=== PATIENT | female | born 1980 | race Caucasian/White ===

== ENCOUNTER → 2016-09-08 | Outpatient (CLI) | payer OTHER ==
--- NOTE | 2016-09-08 16:12 | MR ---
MR thoracic spine HISTORY: Pain Correlation to plain film to March 2014 Multiplanar multisequence imaging through the thoracic spine. Thoracic vertebral bodies show preserved height and alignment. Multiple small hemangiomas present wit hin several thoracic vertebral bodies. Thoracic cord signal is remarkable for prominent central aqued uct. No significant foraminal encroachment or central stenosis. Loss of disc height and signal at the intervertebral levels at the midthoracic spine compatible with disc desiccation and degenerative dis c disease. T4-5 shows a small posterior central disc herniation. T5-6 shows a small central posterior disc herniation. T7-8 shows a central posterior disc herniation which contacts anterior thoracic cord. T9-T10 shows a small right posterior paracentral disc herniation. IMPRESSION: Multilevel disc herniations. No significant central canal stenosis. Probable prominent ce ntral canal within the thoracic cord at the lower level. Disc herniation is greatest at T7-8.
== END | disposition home or self-care (01) ==
LOC: RADMRIMAIN 13:24
PROVIDERS: ATTEND Family Medicine
DX: M51.24 Other intervertebral disc displacement, thoracic region (principal)
CPT/HCPCS: 72146

== ENCOUNTER → 2016-10-09 | Outpatient (CLI) | payer OTHER ==
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
== END ==
LOC: RADMRIMAIN 20:35
PROVIDERS: ATTEND Neurological Surgery
DX: M50.10 Cervical disc disorder with radiculopathy, unspecified cervical region (principal)
CPT/HCPCS: 72141

== ENCOUNTER → 2017-09-13 | Outpatient (CLI) | payer OTHER ==
--- NOTE | 2017-09-13 14:19 | XR ---
EXAMINATION TYPE: XR chest 2V DATE OF EXAM: 09/13/2017 COMPARISON: NONE HISTORY: Mid thoracic and chest pain. TECHNIQUE: Frontal and lateral views of the chest are obtained. FINDINGS: There is no focal air space opacity, pleural effusion, or pneumothorax seen. The cardiac silhouette size is within normal limits. The osseous structures are intact. Cholecystectomy clips a re noted within the right upper quadrant. IMPRESSION: No acute cardiopulmonary process.
== END | disposition home or self-care (01) ==
LOC: RADXRMAIN 13:39
PROVIDERS: ATTEND Family Medicine
DX: M54.6 Pain in thoracic spine (principal)
CPT/HCPCS: 71046

== ENCOUNTER → 2019-08-26 | Outpatient (CLI) | payer BC ==
--- NOTE | 2019-08-26 09:11 | MM ---
Reason for exam: screening (asymptomatic). Baseline mammogram. History: Family history of breast cancer in paternal grandmother at age 70. Took other hormone beginning at age 36. Physical Findings: Nurse did not find any significant physical abnormalities on exam. MG 3D Screening Mammo W/Cad Bilateral CC and MLO view(s) were taken. The breast tissue is heterogeneously dense. This may lower the sensitivity of mammography. No suspicious abnormality. These results were verbally communicated with the patient and result sheet given to the patient on 08/26/19. ASSESSMENT: Negative, BI-RAD 1 RECOMMENDATION: Routine screening mammogram of both breasts in 1 year.
== END | disposition home or self-care (01) ==
LOC: RADMAMWWP 06:48
PROVIDERS: ATTEND Obstetrics & Gynecology
DX: Z12.31 Encounter for screening mammogram for malignant neoplasm of breast (principal)
CPT/HCPCS: 77063; 77067

== ENCOUNTER 2019-09-20 19:01 | Emergency (ER) | payer BC ==
[2019-09-20 19:17] VITALS: TEMP 97.9
[2019-09-20] MEDS ORDERED: SODIUM CHLORIDE 0.9% 500 ML 500 ML IV STA (19:29)
--- NOTE | 2019-09-20 19:41 | ED ---
General Adult HPI - General Chief complaint: Arrhythmia/Palpitations Stated complaint: High BP/heart concerns Time Seen by Provider: 09/20/19 19:20 Source: patient, RN notes reviewed, old records reviewed Mode of arrival: ambulatory Limitations: no limitations - History of Present Illness Initial comments: 39-year-old female patient presents to ED for evaluation of lightheaded sensation. Patient reports that approximately 1.5 hours ago patient began to feel dizzy, felt her ear as needed to pop. Reports that she also expresses some heart palpitations and heart racing. Reports that she still is somewhat expressing the symptoms have significant improved. Denies any chest pain or shortness breath. Denies any headache or change in vision. Denies a chance of being . Denies any other complaints. Systemic: Pt denies fatigue, fever/chills, rash. Pt denies weakness, night sweats, weight loss. Neuro: Pt denies headache, visual disturbances, syncope or pre-syncope. HEENT: Pt denies ocular discharge or irritation, otalgia, rhinorrhea, pha ryngitis or notable lymphadenopathy. Cardiopulmonary: Pt denies chest pain, SOB, heart palpitations, dyspnea on exertion. Abdominal/GI: Pt denies abdominal pain, n/v/d. : Pt denies dysuria, burning w/ urination, frequency/urgency. Denies new onset urinary or bowel incontinence. MSK: Pt denies myalgia, loss of strength or function in extremities. Neuro: Pt denies new onset weakness, paresthesias. - Related Data Home Medications Medication Instructions Recorded Confirmed Desvenlafaxine Succinate [Pristiq 100 mg PO DAILY 04/08/15 04/08/15 ER] Dextroamphetamine/Amphetamine 20 mg PO DAILY 04/08/15 04/08/15 [Adderall] Propranolol HCl [Inderal] 60 mg PO DAILY 04/08/15 04/08/15 lamoTRIgine [LaMICtal] 200 mg PO DAILY 04/08/15 04/08/15 Previous Rx's Medication Instructions Recorded Amoxicillin/Potassium Clav 1 each PO Q12HR #14 tab 04/08/15 [Augmentin 875-125 Tablet] Allergies Allergy/AdvReac Type Severity Reaction Status Date / Time No Known Allergies Allergy Verified 09/20/19 19:17 Review of Systems ROS Statement: Those systems with pertinent positive or pertinent negative responses have been documented in the HPI. ROS Other: All systems not noted in ROS Statement are negative. Past Medical History Additional Past Medical History / Comment(s): back pain History of Any Multi-Drug Resistant Organisms: None Reported Past Surgical History: Cholecystectomy, Tonsillectomy Additional Past Surgical History / Comment(s): jaw surgery x2 Past Psychological History: No Psychological Hx Reported Smoking Status: Never smoker Past Alcohol Use History: None Reported Past Drug Use History: None Reported General Exam - General Exam Comments Initial Comments: Constitutional: NAD, AOX3, Pt has pleasant affect. HEENT: NC/AT, trachea midline, neck supple, no lymphadenopathy. Posterior pharynx non erythematous, without exudates. External ears appear normal, without discharge. Mucous membranes moist. Eyes PERRLA, EOM intact. There is no scleral icterus. No pallor noted. Cardiopulmonary: RRR, no murmurs, rubs or gallops, no JVD noted. Lungs CTAB in anterior and posterior villegas. No peripheral edema. Abdominal exam: Abdomen soft and non-distended. Abdomen non-tender to palpation in all 4 quadrants. Bowel sounds active in LLQ. No hepatosplenomegaly. No ecchymosis Neuro: CN II-XII intact. No nuchal rigidity. No raccon eyes, no leong sign, no hemotympanum. No cervical spinal tenderness. Repeat neurologic exam within normal limits. NIH is 0. MSK: No posterior calf tenderness bilaterally, homans sign negative bilaterally. Posterior tibialis and radial pulse +2 bilaterally. Sensation intact in upper and lower extremities. Full active ROM in upper and lower extremities, 5/5 stregnth. Limitations: no limitations Course Vital Signs 09/20/19 09/20/19 19:14 19:59 Temperature 97.9 F Pulse Rate 92 Pulse Rate [ 92 Help Aid ] Respiratory 16 Rate Blood Pressure 146/100 O2 Sat by Pulse 100 Oximetry Medical Decision Making - Medical Decision Making 39-year-old female patient presents to ED for evaluation of lightheaded sen sation. Patient reports that approximately 1.5 hours ago patient began to feel dizzy, felt her ear as needed to pop. Reports that she also expresses some heart palpitations and heart racing. Reports that she still is somewhat expressing the symptoms have significant improved. Denies any chest pain or shortness breath. Denies any headache or change in vision. Denies a chance of being . Denies any other complaints. Patient relatively stable, afebrile. Physical examhe pathology. Neurologic exam is benign, NIH 0. Laboratory investigations are unremarkable. CT brain was unremarkable. EKG nonischemic. Further history taking patient reports that she has been very stressed at work has been working every day, believes this may be anxiety related. Patient was administered an anxiolytic, patient reports that she felt significant improvement. Patient requests discharge. Patient will follow up with primary care provider on Saturday and will return to ER if condition worsens. Case discussed with Dr. Quiroga. - Lab Data Result diagrams: 09/20/19 19:40 09/20/19 19:40 Lab Results 09/20/19 09/20/19 09/20/19 Range/Units 19:29 19:29 19:40 WBC (3.8-10.6) k/uL RBC (3.80-5.40) m/uL Hgb (11.4-16.0) gm/dL Hct (34.0-46.0) % MCV (80.0-100.0) fL MCH (25.0-35.0) pg MCHC (31.0-37.0) g/dL RDW (11.5-15.5) % Plt Count (150-450) k/uL Neutrophils % % Lymphocytes % % Monocytes % % Eosinophils % % Basophils % % Neutrophils # (1.3-7.7) k/uL Lymphocytes # (1.0-4.8) k/uL Monocytes # (0-1.0) k/uL Eosinophils # (0-0.7) k/uL Basophils # (0-0.2) k/uL Sodium 136 L (137-145) mmol/L Potassium 3.8 (3.5-5.1) mmol/L Chloride 98 (98-107) mmol/L Carbon Dioxide 27 (22-30) mmol/L Anion Gap 11 mmol/L BUN 14 (7-17) mg/dL Creatinine 0.81 (0.52-1.04) mg/dL Est GFR (CKD-EPI)AfAm >90 (>60 ml/min/1.73 sqM) Est GFR (CKD-EPI)NonAf >90 (>60 ml/min/1.73 sqM) Glucose 96 (74-99) mg/dL Calcium 9.2 (8.4-10.2) mg/dL Magnesium 1.7 (1.6-2.3) mg/dL Total Bilirubin 0.2 (0.2-1.3) mg/dL AST 25 (14-36) U/L ALT 22 (4-34) U/L Alkaline Phosphatase 78 (38-126) U/L Troponin I (0.000-0.034) ng/mL Total Protein 7.3 (6.3-8.2) g/dL Albumin 4.7 (3.5-5.0) g/dL TSH 1.250 (0.465-4.680) mIU/L Urine Color Colorless Urine Appearance Clear (Clear) Urine pH 5.5 (5.0-8.0) Ur Specific [place] 1.003 (1.001-1.035) Urine Protein Negative (Negative) Urine Glucose (UA) Negative (Negative) Urine Ketones Trace H (Negative) Urine Blood Trace H (Negative) Urine Nitrite Negative (Negative) Urine Bilirubin Negative (Negative) Urine Urobilinogen <2.0 (<2.0) mg/dL Ur Leukocyte Esterase Negative (Negative) Urine RBC 1 (0-5) /hpf Urine WBC <1 (0-5) /hpf Urine HCG, Qual Not Detected (Not Detectd) Urine Opiates Screen Not Detected (NotDetected) Ur Oxycodone Screen Not Detected (NotDetected) Urine Methadone Screen Not Detected (NotDetected) Ur Propoxyphene Screen Not Detected (NotDetected) Ur Barbiturates Screen Not Detected (NotDetected) U Tricyclic Antidepress Not Detected (NotDetected) Ur Phencyclidine Scrn Not Detected (NotDetected) Ur Amphetamines Screen Not Detected (NotDetected) U Methamphetamines Scrn Not Detected (NotDetected) U Benzodiazepines Scrn Not Detected (NotDetected) Urine Cocaine Screen Not Detected (NotDetected) U Marijuana (THC) Screen Not Detected (NotDetected) 09/20/19 09/20/19 Range/Units 19:40 19:40 WBC 7.3 (3.8-10.6) k/uL RBC 4.85 (3.80-5.40) m/uL Hgb 14.4 (11.4-16.0) gm/dL Hct 42.7 (34.0-46.0) % MCV 88.0 (80.0-100.0) fL MCH 29.6 (25.0-35.0) pg MCHC 33.6 (31.0-37.0) g/dL RDW 12.0 (11.5-15.5) % Plt Count 264 (150-450) k/uL Neutrophils % 71 % Lymphocytes % 20 % Monocytes % 4 % Eosinophils % 2 % Basophils % 0 % Neutrophils # 5.2 (1.3-7.7) k/uL Lymphocytes # 1.4 (1.0-4.8) k/uL Monocytes # 0.3 (0-1.0) k/uL Eosinophils # 0.2 (0-0.7) k/uL Basophils # 0.0 (0-0.2) k/uL Sodium (137-145) mmol/L Potassium (3.5-5.1) mmol/L Chloride (98-107) mmol/L Carbon Dioxide (22-30) mmol/L Anion Gap mmol/L BUN (7-17) mg/dL Creatinine (0.52-1.04) mg/dL Est GFR (CKD-EPI)AfAm (>60 ml/min/1.73 sqM) Est GFR (CKD-EPI)NonAf (>60 ml/min/1.73 sqM) Glucose (74-99) mg/dL Calcium (8.4-10.2) mg/dL Magnesium (1.6-2.3) mg/dL Total Bilirubin (0.2-1.3) mg/dL AST (14-36) U/L ALT (4-34) U/L Alkaline Phosphatase (38-126) U/L Troponin I <0.012 (0.000-0.034) ng/mL Total Protein (6.3-8.2) g/dL Albumin (3.5-5.0) g/dL TSH (0.465-4.680) mIU/L Urine Color Urine Appearance (Clear) Urine pH (5.0-8.0) Ur Specific [place] (1.001-1.035) Urine Protein (Negative) Urine Glucose (UA) (Negative) Urine Ketones (Negative) Urine Blood (Negative) Urine Nitrite (Negative) Urine Bilirubin (Negative) Urine Urobilinogen (<2.0) mg/dL Ur Leukocyte Esterase (Negative) Urine RBC (0-5) /hpf Urine WBC (0-5) /hpf Urine HCG, Qual (Not Detectd) Urine Opiates Screen (NotDetected) Ur Oxycodone Screen (NotDetected) Urine Methadone Screen (NotDetected) Ur Propoxyphene Screen (NotDetected) Ur Barbiturates Screen (NotDetected) U Tricyclic Antidepress (NotDetected) Ur Phencyclidine Scrn (NotDetected) Ur Amphetamines Screen (NotDetected) U Methamphetamines Scrn (NotDetected) U Benzodiazepines Scrn (NotDetected) Urine Cocaine Screen (NotDetected) U Marijuana (THC) Screen (NotDetected) Disposition Clinical Impression: Heart palpitations, Anxiety, Lightheadedness Disposition: HOME SELF-CARE Condition: Stable Instructions (If sedation given, give patient instructions): Heart Palpitations (ED) Additional Instructions: Follow-up with primary care provider tomorrow. Continue to drink lots of water. Return to ER if condition worsens in any way. Is patient prescribed a controlled substance at d/c from ED?: No Referrals: Param Zelaya DO [Primary Care Provider] - 1-2 days
[2019-09-20 19:58] LABS: Basophils % (A) 0 %; Eosinophils # (A) 0.2 k/uL (0-0.7); Eosinophils % (A) 2 %; HCT 42.7 % (34.0-46.0); HGB 14.4 gm/dL (11.4-16.0); Lymphocytes # (A) 1.4 k/uL (1.0-4.8); Lymphocytes % (A) 20 %; MCH 29.6 pg (25.0-35.0); MCHC 33.6 g/dL (31.0-37.0); Mean Platelet Volume 7.3; Monocytes # (A) 0.3 k/uL (0-1.0); Monocytes % (A) 4 %; Neutrophils # (A) 5.2 k/uL (1.3-7.7); Neutrophils % (A) 71 %; Platelet Count 264 k/uL (150-450); RBC 4.85 m/uL (3.80-5.40); WBC 7.3 k/uL (3.8-10.6)
[2019-09-20 20:09] LABS: ALT 22 U/L (4-34); AST 25 U/L (14-36); African American GFR (CKD) >90 (>60 ml/min/1.73 sqM); Albumin 4.7 g/dL (3.5-5.0); Alkaline Phosphatase 78 U/L (38-126); Anion Gap 11 mmol/L; Blood Urea Nitrogen 14 mg/dL (7-17); Calcium 9.2 mg/dL (8.4-10.2); Carbon Dioxide 27 mmol/L (22-30); Chloride 98 mmol/L (98-107); Glucose 96 mg/dL (74-99); Magnesium 1.7 mg/dL (1.6-2.3); Non-African American GFR(CKD) >90 (>60 ml/min/1.73 sqM); Potassium 3.8 mmol/L (3.5-5.1); Sodium 136 mmol/L (137-145); Total Bilirubin 0.2 mg/dL (0.2-1.3); Total Protein 7.3 g/dL (6.3-8.2)
[2019-09-20 20:28] LABS: Appearance,Urine Clear (Clear); Bilirubin,Urine Negative (Negative); Blood,Urine Trace (Negative); Color,Urine Colorless; Glucose,Urine (UA) Negative (Negative); Ketones,Urine Trace (Negative); Leukocyte Esterase,Urine Negative (Negative); Nitrite,Urine Negative (Negative); PH, Urine 5.5 (5.0-8.0); Protein,Urine Negative (Negative); RBC,Urine 1 /hpf (0-5); Specific Gravity,Urine 1.003 (1.001-1.035); Urobilinogen,Urine <2.0 mg/dL (<2.0); WBC,Urine <1 /hpf (0-5)
[2019-09-20 20:37] LABS: Amphetamine Screen,Urine Not Detected (NotDetected); Barbiturate Screen,Urine Not Detected (NotDetected); Benzodiazepines Screen,Urine Not Detected (NotDetected); Cocaine Screen,Urine Not Detected (NotDetected); Methadone Screen, Urine Not Detected (NotDetected); Opiate Screen,Urine Not Detected (NotDetected); Oxycodone Screen, Urine Not Detected (NotDetected); Phencyclidine Screen,Urine Not Detected (NotDetected); Tricyclic Antidepressant,Urine Not Detected (NotDetected); Urn Cannabinoid Scrn Not Detected (NotDetected)
[2019-09-20] MEDS ORDERED: LORazepam 1 MG TAB PO STA (20:44)
--- NOTE | 2019-09-20 21:04 | CT ---
EXAMINATION TYPE: CT brain wo con DATE OF EXAM: 09/20/2019 COMPARISON: None. HISTORY: dizziness CT DLP: 1098.4 mGycm. Automated Exposure Control for Dose Reduction was Utilized. TECHNIQUE: CT scan of the head is performed without contrast. FINDINGS: There is no acute intracranial hemorrhage, mass effect, or midline shift identified. The ventricles and sulci are within normal limits in size. Butt-white matter differentiation is maintain ed. The globes are intact and the visualized sinuses are clear. The calvarium is intact. No suspiciou s fluid signal bilateral mastoid air cells. IMPRESSION: Unremarkable study.
[2019-09-20 21:36] VITALS: BP 136/93; PULSE 104; RESP 18
== END 2019-09-20 21:36 | disposition home or self-care (01) ==
LOC: EC 19:01
DX: F41.9 Anxiety disorder, unspecified (principal); R42 Dizziness and giddiness; R00.2 Palpitations; Z79.899 Other long term (current) drug therapy
CPT/HCPCS: 36415; 70450; 80053; 80306; 81001; 81025; 83735; 84443; 84484; 85025; 93005; 96360; 99285

== ENCOUNTER → 2020-04-18 | Outpatient (CLI) | payer BC ==
--- NOTE | 2020-04-18 16:04 | XR ---
EXAMINATION TYPE: XR cervical spine comp DATE OF EXAM: 04/18/2020 COMPARISON: None HISTORY: Pain TECHNIQUE: Five-view cervical spine FINDINGS: The prevertebral space is normal. Disc heights are preserved. Vertebral body heights are pr eserved. Alignment is normal. Foramen are patent. Odontoid is limited with overlying occiput and maxilla despite multiple attempts. IMPRESSION: 1. Visualized cervical spine is unremarkable.
== END | disposition home or self-care (01) ==
LOC: RADXRMAIN 07:03
PROVIDERS: ATTEND Family Medicine
DX: M54.2 Cervicalgia (principal)
CPT/HCPCS: 72050

== ENCOUNTER → 2020-10-18 | Outpatient (CLI) | payer BC ==
--- NOTE | 2020-10-20 13:50 | MM ---
Reason for exam: screening (asymptomatic). Last mammogram was performed 1 year and 2 months ago. History: Family history of breast cancer in paternal grandmother at age 70. Taking progesterone beginning at age 38. Took other hormone beginning at age 36. Physical Findings: A clinical breast exam by your physician is recommended on an annual basis and results should be correlated with mammographic findings. MG 3D Screening Mammo W/Cad Bilateral CC and MLO view(s) were taken. Prior study comparison: August 26, 2019, bilateral MG 3d screening mammo w/cad. There are scattered fibroglandular densities. No significant changes when compared with prior studies. ASSESSMENT: Benign, BI-RAD 2 RECOMMENDATION: Routine screening mammogram of both breasts in 1 year.
== END | disposition home or self-care (01) ==
LOC: RADMAMWWP 16:36
PROVIDERS: ATTEND Obstetrics & Gynecology
DX: Z12.31 Encounter for screening mammogram for malignant neoplasm of breast (principal); Z80.3 Family history of malignant neoplasm of breast
CPT/HCPCS: 77063; 77067

== ENCOUNTER → 2021-11-30 | Outpatient (CLI) | payer OTHER ==
--- NOTE | 2021-12-01 11:46 | MM ---
Reason for exam: screening (asymptomatic). Last mammogram was performed 1 year and 1 month ago. History: Family history of breast cancer in paternal grandmother at age 70. Taking progesterone beginning at age 38. Took other hormone beginning at age 36. Physical Findings: A clinical breast exam by your physician is recommended on an annual basis and results should be correlated with mammographic findings. MG 3D Screening Mammo W/Cad Bilateral CC and MLO view(s) were taken. Prior study comparison: October 18, 2020, bilateral MG 3d screening mammo w/cad. August 26, 2019, bilateral MG 3d screening mammo w/cad. There are scattered fibroglandular densities. There is chronic nodularity in the right breast. No significant changes when compared with prior studies. ASSESSMENT: Negative, BI-RAD 1 RECOMMENDATION: Routine screening mammogram of both breasts in 1 year.
== END | disposition home or self-care (01) ==
LOC: RADMAMWWP 06:56
PROVIDERS: ATTEND Obstetrics & Gynecology
DX: Z12.31 Encounter for screening mammogram for malignant neoplasm of breast (principal)
CPT/HCPCS: 77063; 77067

== ENCOUNTER 2022-02-28 07:31 | Day surgery (SDC) | payer OTHER ==
[2022-02-27 12:02] VITALS: BMI 27.3
--- NOTE | 2022-02-28 06:22 | P.GSHP ---
History of Present Illness H&P Date: 02/28/22 CHIEF COMPLAINT: GERD and change in bowel habits HISTORY OF PRESENT ILLNESS: The patient is a 41-year-old female who presents with gastroesophageal reflux disease and change in bowel habits. Upper and lower endoscopy were offered for further evaluation and management. PAST MEDICAL HISTORY: Please see list. PAST SURGICAL HISTORY: Please see list. MEDICATIONS: Please see list. ALLERGIES: Please see list. SOCIAL HISTORY: No illicit drug use FAMILY HISTORY: No reports of Crohn disease or ulcerative colitis. REVIEW OF ORGAN SYSTEMS: CONSTITUTIONAL: No reports of fevers or chills. GI: Denies any blood in stools or constipation. PHYSICAL EXAM: VITAL SIGNS: Stable GENERAL: Well-developed pleasant in no acute distress. HEENT: No scleral icterus. Extraocular movements grossly intact. Moist buccal mucosa. NECK: Supple without lymphadenopathy. CHEST: Unlabored respirations. Equal bilateral excursions. CARDIOVASCULAR: Regular rate and rhythm. Distal 2+ pulses. ABDOMEN: Soft, nondistended. MUSCULOSKELETAL: No clubbing, cyanosis, or edema. ASSESSMENT: 1. Gastroesophageal reflux disease 2. Change in bowel habits PLAN: 1. Recommend proceeding with an upper and lower endoscopy Past Medical History Past Medical History: GERD/Reflux Additional Past Medical History / Comment(s): back pain History of Any Multi-Drug Resistant Organisms: None Reported Past Surgical History: Cholecystectomy, Tonsillectomy Additional Past Surgical History / Comment(s): jaw surgery x2 Past Anesthesia/Blood Transfusion Reactions: No Reported Reaction Additional Past Anesthesia/Blood Transfusion Reaction / Comment(s): TMJ Smoking Status: Never smoker - Past Family History Mother Family Medical History: Cancer Additional Family Medical History / Comment(s): lung- in November 2021 Medications and Allergies Home Medications Medication Instructions Recorded Confirmed Type Dextroamphetamine/Amphetamine 30 mg PO BID 04/08/15 02/27/22 History [Adderall] Propranolol HCl [Inderal] 20 mg PO BID 04/08/15 02/27/22 History ALPRAZolam [Xanax] 1 mg PO BID PRN 02/27/22 02/27/22 History Atorvastatin [Lipitor] 20 mg PO HS 02/27/22 02/27/22 History Cannabidiol (Cbd) [Epidiolex] 1 dose TOPICAL HS 02/27/22 02/27/22 History Famotidine [Pepcid] 40 mg PO HS 02/27/22 02/27/22 History Minocycline [Minocin] 50 mg PO DAILY 02/27/22 02/27/22 History buPROPion XL [Wellbutrin XL] 450 mg PO QAM 02/27/22 02/27/22 History busPIRone HCl [Buspar] 15 mg PO TID 02/27/22 02/27/22 History metroNIDAZOLE 0.75% CREAM 1 applic TOPICAL DAILY 02/27/22 02/27/22 History [Metrocream 0.75%] Allergies Allergy/AdvReac Type Severity Reaction Status Date / Time No Known Allergies Allergy Verified 02/27/22 11:48
[~2022-02-28 07:31] MED LIST: LACTATED RINGERS 1,000 ML IV SCH
[2022-02-28 08:13] VITALS: TEMP 96.9
[2022-02-28] MEDS ORDERED: LIDOCAINE 2% INJ 20 MG/ML (2 ML VIAL) ONE (09:19)
[2022-02-28] MEDS ORDERED: PROPOFOL 10 MG/ML 20 ML VIAL IV ONE (09:19)
--- NOTE | 2022-02-28 09:43 | P.PCN ---
Date of Procedure: 02/28/22 Description of Procedure: PREOPERATIVE DIAGNOSIS: Gastroesophageal reflux disease. POSTOPERATIVE DIAGNOSIS: Gastroesophageal reflux disease. Acute gastric ulcers with recent bleeding Diaphragmatic hiatal hernia OPERATION: Esophagogastroduodenoscopy with biopsies along antrum, duodenum SURGEON: Amina Goodwin MD ANESTHESIA: MAC. INDICATIONS: The patient is a 41-year-old female who presents with reflux disease. Benefits and risks of the procedure were described. Informed consent was obtained. DESCRIPTION: The patient was brought into the endoscopy suite and laid in the left lateral decubitus position. An Olympus gastroscope was passed along the posterior oropharynx down to the distal esophagus where the squamocolumnar junction was encountered at 40 cm from the incisors. The stomach was entered and no bile reflux was found. Additional findings are listed below. Biopsies with cold forceps were obtained of the antrum. The first through third portion of the duodenum was examined. Retroflexion of the scope confirmed Hill grade 4 lower esophageal valve. The squamocolumnar junction demonstrated LA grade B erosive esophagitis. The stomach was desufflated. The patient tolerated the procedure well. FINDINGS: Squamocolumnar junction 30 cm from the incisors. Diaphragmatic hiatus at 32 cm. Hiatal hernia, 2 cm, sliding type Hill grade 4 lower esophageal valve. Acute gastric ulcers 3 to 4 mm 3 with bleeding, proximal angularis incisura LA grade B erosive esophagitis. Cold forceps biopsies obtained of duodenum Chronic gastritis with recent bleed RECOMMENDATIONS: Repeat upper endoscopy 6 weeks, April 2022.
--- NOTE | 2022-02-28 10:07 | P.PCN ---
Date of Procedure: 02/28/22 Description of Procedure: PREOPERATIVE DIAGNOSIS: Change in bowel habits Colitis POSTOPERATIVE DIAGNOSIS: Sigmoid diverticulosis Colitis OPERATION: Colonoscopy to the ileocecal valve and appendiceal orifice, cecum Colonoscopy with cold forceps biopsy for microscopic colitis SURGEON: Amina Goodwin MD. ANESTHESIA: MAC. INDICATIONS: The patient is an 41-year-old female who presents with change in bowel habits and colitis. Benefits and risks were described and informed consent was obtained. DESCRIPTION OF PROCEDURE: The patient had undergone Sutab prep. The patient had been brought into the operating room and laid in the left lateral decubitus position. After adequate intravenous sedation, the rectum was examined with 2% lidocaine jelly. External hemorrhoids were encountered. The rectal tone was within normal limits. No lesions were palpated in the rectal vault. An Olympus colonoscope was advanced until the cecum, ileocecal valve and appendiceal orifice were clearly viewed. The prep was good. Sigmoid diverticulosis was encountered. Random biopsies were obtained for colitis. Retroflexion of the scope demonstrated grade 2 internal hemorrhoids without active bleeding or inflammation. The colon was desufflated. The patient had tolerated the procedure well. Withdrawal time was over 6 minutes. FINDINGS: Aronchick preparation quality scale 2 (1-5) Internal hemorrhoids, grade 2 External hemorrhoids, grade 2. No arteriovenous malformations. Sigmoid diverticulosis Random biopsies obtained for colitis, microscopic RECOMMENDATIONS: Reviewed colonoscopy in 2 years, 2023 Plan - Discharge Summary Discharge Rx Participant: No New Discharge Prescriptions: New Sucralfate [Carafate] 1 gm PO BID #30 tablet Pantoprazole [Protonix] 40 mg PO DAILY #14 tab Continue Propranolol HCl [Inderal] 20 mg PO BID Dextroamphetamine/Amphetamine [Adderall] 30 mg PO BID ALPRAZolam [Xanax] 1 mg PO BID PRN PRN Reason: Anxiety Minocycline [Minocin] 50 mg PO DAILY metroNIDAZOLE 0.75% CREAM [Metrocream 0.75%] 1 applic TOPICAL DAILY Atorvastatin [Lipitor] 20 mg PO HS buPROPion XL [Wellbutrin XL] 450 mg PO QAM busPIRone HCl [Buspar] 15 mg PO TID Cannabidiol (Cbd) [Epidiolex] 1 dose TOPICAL HS Discontinued Famotidine [Pepcid] 40 mg PO HS Discharge Medication List Dextroamphetamine/Amphetamine [Adderall] 30 mg PO BID 04/08/15 [History] Propranolol HCl [Inderal] 20 mg PO BID 04/08/15 [History] ALPRAZolam [Xanax] 1 mg PO BID PRN 02/27/22 [History] Atorvastatin [Lipitor] 20 mg PO HS 02/27/22 [History] Cannabidiol (Cbd) [Epidiolex] 1 dose TOPICAL HS 02/27/22 [History] Minocycline [Minocin] 50 mg PO DAILY 02/27/22 [History] buPROPion XL [Wellbutrin XL] 450 mg PO QAM 02/27/22 [History] busPIRone HCl [Buspar] 15 mg PO TID 02/27/22 [History] metroNIDAZOLE 0.75% CREAM [Metrocream 0.75%] 1 applic TOPICAL DAILY 02/27/22 [History] Pantoprazole [Protonix] 40 mg PO DAILY #14 tab 02/28/22 [Rx] Sucralfate [Carafate] 1 gm PO BID #30 tablet 02/28/22 [Rx] Follow up Appointment(s)/Referral(s): Amina Goodwin MD [STAFF PHYSICIAN] - 03/20/22 Patient Instructions/Handouts: Diet for Stomach Ulcers and Gastritis (ED), Diverticulosis Diet (GEN), Diverticulosis (DC) Activity/Diet/Wound Care/Special Instructions: Repeat colonoscopy in 2 years, 2023 Discharge Disposition: HOME SELF-CARE
[2022-02-28 10:35] VITALS: BP 121/85; PULSE 89; RESP 15
== END 2022-02-28 11:10 | disposition home or self-care (01) ==
LOC: ORWHC2ENDO 07:31
PROVIDERS: ATTEND Surgery Plastic and Reconstructive Surgery
DX: K21.00 Gastro-esophageal reflux disease with esophagitis, without bleeding (principal); K29.51 Unspecified chronic gastritis with bleeding; K25.0 Acute gastric ulcer with hemorrhage; K44.9 Diaphragmatic hernia without obstruction or gangrene; K52.9 Noninfective gastroenteritis and colitis, unspecified; K57.30 Diverticulosis of large intestine without perforation or abscess without bleeding; K64.1 Second degree hemorrhoids; E78.5 Hyperlipidemia, unspecified; F41.9 Anxiety disorder, unspecified; Z79.899 Other long term (current) drug therapy; Z80.1 Family history of malignant neoplasm of trachea, bronchus and lung
CPT/HCPCS: 81025; 88305; 45380; 43239; J2704; J2001

== ENCOUNTER → 2023-01-10 | Outpatient (CLI) | payer BC, OTHER ==
--- NOTE | 2023-01-10 09:23 | MM ---
Reason for Exam: Screening (asymptomatic). Last mammogram was performed 1 year(s) and 1 month(s) ago. Patient History: Menarche at age 11. Patient has no children. Progesterone for 2 years from age 38 until age 40. Paternal grandmother had breast cancer, age 70. Risk Values: Yesenia 5 year model risk: 0.9%. NCI Lifetime model risk: 10.7%. Prior Study Comparison: 08/26/2019 Bilateral Screening Mammogram, [facility]. 10/18/2020 Bilateral Screening Mammogram, [facility]. 11/30/2021 Bilateral Screening Mammogram, [facility]. Tissue Density: The breast tissue is heterogeneously dense. This may lower the sensitivity of mammography. Findings: Analyzed By CAD. There is no suspicious group of microcalcifications or new suspicious mass in either breast. Overall Assessment: Benign, BI-RAD 2 Management: Screening Mammogram of both breasts in 1 year. . Patient should continue monthly self-breast exams. A clinical breast exam by your physician is recommended on an annual basis. This exam should not preclude additional follow-up of suspicious palpable abnormalities. Note on Yesenia scores and lifetime risk: 1. A Yesenia score greater than 3% is considered moderate risk. If this is the case, consider specialist referral to assess eligibility for a risk reducing agent. 2. If overall lifetime risk for the development of breast cancer is 20% or higher, the patient may qualify for future screening with alternating mammogram and breast MRI. Electronically signed and approved by: Ifeanyi Cerna M.D. Radiologis
== END | disposition home or self-care (01) ==
LOC: RADMAMWWP 07:14
PROVIDERS: ATTEND Obstetrics & Gynecology
DX: Z12.31 Encounter for screening mammogram for malignant neoplasm of breast (principal); Z80.3 Family history of malignant neoplasm of breast
CPT/HCPCS: 77063; 77067

== ENCOUNTER → 2023-04-08 | Outpatient (CLI) | payer BC ==
[2023-04-08 15:25] LABS: Basophils # (A) 0.07 X 10*3/uL (0.00-0.10); Basophils % (A) 1.7 %; Eosinophils # (A) 0.17 X 10*3/uL (0.04-0.35); Eosinophils % (A) 4.2 %; HCT 37.9 % (37.2-46.3); HGB 12.9 d/dL (12.0-15.0); Immature Grans, Automated 0 %; Lymphocytes # (A) 1.23 X 10*3/uL (0.90-5.00); Lymphocytes % (A) 30.1 %; MCH 30.6 pg (27.0-32.0); Mean Platelet Volume 9.6 FL (9.5-12.2); Monocytes % (A) 7.4 %; NRBC Per 100 WBC 0 X 10*3/uL (0.00-0.01); Neutrophils # (A) 2.31 X 10*3/uL (1.80-7.70); Neutrophils % (A) 56.6 %; Platelet Count 295 X 10*3/uL (140-440); RBC 4.21 X 10*6/uL (4.10-5.20); RDW 11.9 % (11.5-14.5); WBC 4.08 X 10*3/uL (4.50-10.00)
[2023-04-08 15:28] LABS: Homocysteine 5.45 UMOL/L (4.00-14.00)
[2023-04-08 15:38] LABS: ALT 19 U/L (8-44); AST 12 U/L (13-35); Albumin 4.6 d/dL (3.8-4.9); Albumin/Globulin Ratio 3.29 Ratio (1.60-3.17); Alkaline Phosphatase 59 U/L (41-126); BUN/Creat Ratio 12.71 Ratio (12.00-20.00); Blood Urea Nitrogen 8.9 mg/dL (9.0-27.0); C Reactive Protein <0.30 mg/dL (0.00-0.80); Calcium 9.3 mg/dL (8.7-10.3); Carbon Dioxide 27.8 mmol/L (21.6-31.8); Chloride 104 mmol/L (96-109); Ferritin 76.4 ng/mL (10.0-291.0); Globulin 1.4 d/dL (1.6-3.3); Glucose 91 mg/dL (70-110); Iron 82 UG/DL (50-170); Magnesium 2.1 mg/dL (1.5-2.4); Potassium 4.8 mmol/L (3.5-5.5); Sodium 139 mmol/L (135-145); Total Bilirubin 0.2 mg/dL (0.3-1.2)
[2023-04-08 17:10] LABS: INR <0.93 sec (0.93-1.11); Prothrombin Time 10.1 sec (9.9-11.9)
[2023-04-09 14:12] LABS: APTT 34 Sec(s) (<43); Dilute Russell Viper Venom 34 Sec(s) (<44)
== END | disposition home or self-care (01) ==
LOC: LABWHC1 09:55
PROVIDERS: ATTEND Family Medicine
DX: M62.81 Muscle weakness (generalized) (principal); R79.89 Other specified abnormal findings of blood chemistry; R58 Hemorrhage, not elsewhere classified
CPT/HCPCS: 36415; 80053; 81241; 82728; 83090; 83540; 83735; 85025; 85300; 85303; 85306; 85610; 85613; 85730; 86140

== ENCOUNTER → 2023-04-08 | Outpatient (CLI) | payer BC ==
--- NOTE | 2023-04-08 10:49 | XR ---
EXAMINATION TYPE: XR thoracic spine 2V DATE OF EXAM: 04/08/2023 10:30 AM INDICATION: Patient age:Female; 42 years old; Reason for study: M54.12 RADICULOPATHY, CERVICAL REGION; [facility]. COMPARISON: MRI thoracic spine 09/08/2016, thoracic spine radiograph 04/15/2014. TECHNIQUE: Frontal, lateral, and Schwimmer's views of the thoracic spine were obtained. FINDINGS: No evidence of any acute osseous pathology. No evidence of loss of vertebral body height i s seen. There is normal alignment of the lumbar vertebral bodies. Mild multilevel disc space narrowin g with endplate sclerosis and anterior osteophytosis. IMPRESSION: 1. No acute process. 2. Mild multilevel degenerative disc disease of the thoracic spine.
--- NOTE | 2023-04-08 10:50 | XR ---
EXAMINATION TYPE: XR cervical spine comp DATE OF EXAM: 04/08/2023 10:30 AM INDICATION: Patient age:Female; 42 years old; Reason for study: M54.12 RADICULOPATHY, CERVICAL REGION; [facility]. COMPARISON: Cervical spine radiograph 04/18/2020. TECHNIQUE: The cervical spine was imaged in 4 projections. Frontal, lateral, odontoid and bilateral o blique. FINDINGS: No acute fracture. Similar grade 1 anterolisthesis of C4 on C5. There are osteophytes noted throughou t the cervical spine on the anterior and lateral aspects of the vertebral bodies. Multilevel disc spa ce narrowing with endplate sclerosis. Pedicles are intact. Soft tissues are within normal limits. Th e odontoid appears intact. IMPRESSION: 1. No fracture or dislocation. 2. Mild degenerative disc disease changes of the cervical spine. 3. Similar grade 1 anterolisthesis of C4 on C5
== END | disposition home or self-care (01) ==
LOC: RADXRMAIN 09:09
PROVIDERS: ATTEND Nurse Practitioner Family
DX: M51.14 Intervertebral disc disorders with radiculopathy, thoracic region (principal)
CPT/HCPCS: 72050; 72070

== ENCOUNTER → 2024-01-14 | Outpatient (CLI) | payer BC ==
--- NOTE | 2024-01-15 08:58 | MM ---
Reason for Exam: Screening (asymptomatic). Last screening mammogram was performed 12 month(s) ago. Patient History: Menarche at age 11. Patient has no children. Unspecified Hormone for 2 years from age 38 until age 40. Paternal grandmother had breast cancer, age 70. Risk Values: Yesenia 5 year model risk: 0.9%. NCI Lifetime model risk: 10.6%. Prior Study Comparison: 10/18/2020 Bilateral Screening Mammogram, [facility]. 11/30/2021 Bilateral Screening Mammogram, [facility]. 01/10/2023 Bilateral MG 3D screening mammo w/cad, [facility]. Tissue Density: There are scattered areas of fibroglandular density. Findings: Analyzed By CAD. New asymmetric nodular density outer CC view measuring 5 mm an approximately 3.6 cm from the nipple. Additional views are recommended. No suspicious microcalcifications within either breast. Overall Assessment: Incomplete: need additional imaging evaluation, BI-RAD 0 Management: Diagnostic Mammogram of the right breast. . Patient should continue monthly self-breast exams. A clinical breast exam by your physician is recommended on an annual basis. This exam should not preclude additional follow-up of suspicious palpable abnormalities. Note on Yesenia scores and lifetime risk: 1. A Yesenia score greater than 3% is considered moderate risk. If this is the case, consider specialist referral to assess eligibility for a risk reducing agent. 2. If overall lifetime risk for the development of breast cancer is 20% or higher, the patient may qualify for future screening with alternating mammogram and breast MRI. Electronically signed and approved by: Ifeanyi Cerna M.D. Radiologis
== END | disposition home or self-care (01) ==
LOC: RADMAMWWP 07:39
PROVIDERS: ATTEND Obstetrics & Gynecology
DX: Z12.31 Encounter for screening mammogram for malignant neoplasm of breast (principal); Z80.3 Family history of malignant neoplasm of breast
CPT/HCPCS: 77063; 77067

== ENCOUNTER → 2024-01-16 | Outpatient (CLI) | payer BC ==
--- NOTE | 2024-01-17 13:28 | MM ---
Reason for Exam: Additional evaluation requested from prior study. Last screening mammogram was performed less than 1 month ago. Patient History: Menarche at age 11. Patient has no children. Unspecified Hormone for 2 years from age 38 until age 40. Paternal grandmother had breast cancer, age 70. Risk Values: Yesenia 5 year model risk: 0.9%. NCI Lifetime model risk: 10.6%. Tissue Density: Right: There are scattered areas of fibroglandular density. Findings: Analyzed By CAD. The questioned area of nodular asymmetric density lateral anterior right cc view becomes less defined on spot 3-D CC and has the appearance of fibroglandular tissue on tomographic slices. Six-month follow-up recommended to reassess. No correlating abnormality on the 3-D lateral view. Overall Assessment: Probably benign, BI-RAD 3 Management: Diagnostic Mammogram of the right breast in 6 months. Results were given to the patient verbally at the time of exam. Patient should continue monthly self-breast exams. A clinical breast exam by your physician is recommended on an annual basis. This exam should not preclude additional follow-up of suspicious palpable abnormalities. Note on Yesenia scores and lifetime risk: 1. A Yesenia score greater than 3% is considered moderate risk. If this is the case, consider specialist referral to assess eligibility for a risk reducing agent. 2. If overall lifetime risk for the development of breast cancer is 20% or higher, the patient may qualify for future screening with alternating mammogram and breast MRI. Electronically signed and approved by: Denzel Dumont M.D. Radiologist
== END | disposition home or self-care (01) ==
LOC: RADMAMWWP 13:41
PROVIDERS: ATTEND Obstetrics & Gynecology
DX: R92.321 Mammographic fibroglandular density, right breast (principal); R92.8 Other abnormal and inconclusive findings on diagnostic imaging of breast; Z80.3 Family history of malignant neoplasm of breast
CPT/HCPCS: 77061; 77065

== ENCOUNTER 2024-03-04 07:00 | Day surgery (SDC) | payer BC ==
[2024-03-04] MEDS ORDERED: LACTATED RINGERS 1,000 ML BAG ONE (07:11)
[2024-03-04] MEDS ORDERED: PROPOFOL 10 MG/ML 20 ML VIAL IV ONE (07:44)
[2024-03-04] MEDS ORDERED: LIDOCAINE 1% INJ 10MG/ML (20 ML MDV) ONE (07:44)
== END 2024-03-04 09:06 ==
LOC: ORWHC2ENDO 07:00
PROVIDERS: ATTEND Surgery Plastic and Reconstructive Surgery
DX: Z12.11 Encounter for screening for malignant neoplasm of colon (principal); K21.00 Gastro-esophageal reflux disease with esophagitis, without bleeding; E78.5 Hyperlipidemia, unspecified; F41.8 Other specified anxiety disorders; F90.9 Attention-deficit hyperactivity disorder, unspecified type; F31.9 Bipolar disorder, unspecified; M32.9 Systemic lupus erythematosus, unspecified; Z79.899 Other long term (current) drug therapy
CPT/HCPCS: 45385; 88305

== ENCOUNTER 2024-05-20 06:42 | Day surgery (SDC) | payer BC ==
[~2024-05-20 06:42] MED LIST changes: -LACTATED RINGERS 1,000 ML IV SCH; +LIDOCAINE 1% (10MG/ML) FOR IV START INTRADERMA PRN
[2024-05-20 07:15] VITALS: TEMP 97.2
[2024-05-20] MEDS: IV FLUID CONTINUATION 1,000 ML IV ONE (07:28)
[2024-05-20] MEDS: LACTATED RINGERS 1,000 ML IV SCH (07:28)
--- NOTE | 2024-05-20 07:58 | P.GSHP ---
History of Present Illness H&P Date: 05/20/24 CHIEF COMPLAINT: GERD HISTORY OF PRESENT ILLNESS: The patient is a 43-year-old female who presents reports gastroesophageal reflux disease. Upper endoscopy was offered for further evaluation and management. PAST MEDICAL HISTORY: Please see list. PAST SURGICAL HISTORY: Please see list. MEDICATIONS: Please see list. ALLERGIES: Please see list. SOCIAL HISTORY: No illicit drug use FAMILY HISTORY: No reports of Crohn disease or ulcerative colitis. REVIEW OF ORGAN SYSTEMS: CONSTITUTIONAL: No reports of fevers or chills. GI: Denies any blood in stools or constipation. PHYSICAL EXAM: VITAL SIGNS: Stable GENERAL: Well-developed and pleasant in no acute distress. HEENT: No scleral icterus. Extraocular movements grossly intact. Moist buccal mucosa. NECK: Supple without lymphadenopathy. CHEST: Unlabored respirations. Equal bilateral excursions. CARDIOVASCULAR: Regular rate and rhythm. Distal 2+ pulses. ABDOMEN: Soft, nondistended. MUSCULOSKELETAL: No clubbing, cyanosis, or edema. ASSESSMENT: 1. Gastroesophageal reflux disease PLAN: 1. Recommend proceeding with an upper endoscopy Past Medical History Past Medical History: GERD/Reflux, Hyperlipidemia Additional Past Medical History / Comment(s): LUIPUS. Back pain History of Any Multi-Drug Resistant Organisms: None Reported Past Surgical History: Cholecystectomy, Tonsillectomy Additional Past Surgical History / Comment(s): MIRENA UTERINE IMPLANT. CYST REMOVED FROM THROAT. jaw surgery x2 Past Anesthesia/Blood Transfusion Reactions: No Reported Reaction Additional Past Anesthesia/Blood Transfusion Reaction / Comment(s): TMJ Past Psychological History: Anxiety Smoking Status: Never smoker Past Alcohol Use History: None Reported Past Drug Use History: None Reported - Past Family History Mother Family Medical History: Cancer Additional Family Medical History / Comment(s): lung- in November 2021 Medications and Allergies Home Medications Medication Instructions Recorded Confirmed Type Dextroamphetamine/Amphetamine 30 mg PO BID 04/08/15 05/20/24 History [Adderall] Propranolol HCl [Inderal] 20 mg PO BID 04/08/15 05/20/24 History ALPRAZolam [Xanax] 1 mg PO BID PRN 02/27/22 05/20/24 History Atorvastatin [Lipitor] 20 mg PO HS 02/27/22 05/20/24 History buPROPion XL [Wellbutrin XL] 300 mg PO QAM 02/27/22 05/20/24 History busPIRone HCl [Buspar] 30 mg PO BID 02/27/22 05/20/24 History Hydroxychloroquine Sulfate 1.5 tab PO QAM 05/18/24 05/20/24 History [Plaquenil] Meloxicam [Mobic] 15 mg PO QAM 05/18/24 05/20/24 History Pantoprazole [Protonix] 40 mg PO QAM 05/18/24 05/20/24 History Allergies Allergy/AdvReac Type Severity Reaction Status Date / Time No Known Allergies Allergy Verified 05/20/24 07:10 Surgical - Exam Vital Signs Temp Pulse Resp BP Pulse Ox 97.2 F L 77 18 120/72 100 05/20/24 07:12 05/20/24 07:12 05/20/24 07:12 05/20/24 07:12 05/20/24 07:12
[2024-05-20] MEDS ORDERED: LIDOCAINE 1% INJ 10MG/ML (20 ML MDV) ONE (07:59)
[2024-05-20] MEDS ORDERED: PROPOFOL 10 MG/ML 20 ML VIAL IV ONE (07:59)
[2024-05-20 08:27] VITALS: RESP 16
[2024-05-20 08:46] VITALS: BP 120/86; PULSE 71
--- NOTE | 2024-05-20 09:33 | P.PCN ---
Date of Procedure: 05/20/24 Description of Procedure: PREOPERATIVE DIAGNOSIS: Dysphagia. POSTOPERATIVE DIAGNOSIS: Dysphagia. Upper esophageal stricture Gastric polyp OPERATION: Esophagogastroduodenoscopy with rigid dilator over the guidewire 48 Fr. SURGEON: Amina Goodwin MD ANESTHESIA: MAC. INDICATIONS: The patient is a 43-year-old male who presents with a history of dysphagia. Benefits and risks of the procedure were described. Informed consent was obtained. DESCRIPTION: The patient was brought into the endoscopy suite and laid in the left lateral decubitus position. After a timeout was confirmed, the procedure was initiated. An Olympus gastroscope was passed and the stomach was entered. Mild gastritis was identified. The scope was advanced to the duodenum which was unremarkable. Retroflexion the scope confirmed a Hill grade 1 lower esophageal valve. Next using an Nigerien rigid dilator, a guidewire was placed through the pediatric gastroscope. Next the scope was withdrawn. A 48-Maltese rigid Nigerien dilator was passed carefully along the posterior oropharynx to 50 cm and left in place for 2-3 minutes stretch. The dilator was withdrawn including the guidewire. The scope was reentered along the posterior oropharynx with no findings of full-thickness tear of the upper esophageal sphincter. Next, inflammation of the antrum was identified with cold forceps biopsies obtained. No full-thickness injury was encountered. The GI tract was desufflated. The patient tolerated the procedure well. FINDINGS: Squamocolumnar junction unremarkable at 40 cm. Upper esophageal stricture without ulceration Nigerien rigid dilator 48-Maltese completed. No hiatus hernia Hill grade 1 lower esophageal valve. LA grade A esophagitis. Gastric polyp, 3 mm, hyperplastic RECOMMENDATIONS: Upper endoscopy as needed Plan - Discharge Summary Discharge Rx Participant: No New Discharge Prescriptions: Continue Propranolol HCl [Inderal] 20 mg PO BID Dextroamphetamine/Amphetamine [Adderall] 30 mg PO BID ALPRAZolam [Xanax] 1 mg PO BID PRN PRN Reason: Anxiety Atorvastatin [Lipitor] 20 mg PO HS Meloxicam [Mobic] 15 mg PO QAM buPROPion XL [Wellbutrin XL] 300 mg PO QAM busPIRone HCl [Buspar] 30 mg PO BID Pantoprazole [Protonix] 40 mg PO QAM Hydroxychloroquine Sulfate [Plaquenil] 1.5 tab PO QAM Discharge Medication List Dextroamphetamine/Amphetamine [Adderall] 30 mg PO BID 04/08/15 [History] Propranolol HCl [Inderal] 20 mg PO BID 04/08/15 [History] ALPRAZolam [Xanax] 1 mg PO BID PRN 02/27/22 [History] Atorvastatin [Lipitor] 20 mg PO HS 02/27/22 [History] buPROPion XL [Wellbutrin XL] 300 mg PO QAM 02/27/22 [History] busPIRone HCl [Buspar] 30 mg PO BID 02/27/22 [History] Hydroxychloroquine Sulfate [Plaquenil] 1.5 tab PO QAM 05/18/24 [History] Meloxicam [Mobic] 15 mg PO QAM 05/18/24 [History] Pantoprazole [Protonix] 40 mg PO QAM 05/18/24 [History] Follow up Appointment(s)/Referral(s): Amina Goodwin MD [STAFF PHYSICIAN] - 06/02/24 2:00 pm Patient Instructions/Handouts: Esophageal Dilation (DC) Discharge Disposition: HOME SELF-CARE
== END 2024-05-20 09:43 | disposition home or self-care (01) ==
LOC: ORWHC2ENDO 06:42
PROVIDERS: ATTEND Surgery Plastic and Reconstructive Surgery
DX: K22.2 Esophageal obstruction (principal); K21.00 Gastro-esophageal reflux disease with esophagitis, without bleeding; K29.70 Gastritis, unspecified, without bleeding; K31.7 Polyp of stomach and duodenum; K22.89 Other specified disease of esophagus; E78.5 Hyperlipidemia, unspecified; F41.9 Anxiety disorder, unspecified; M32.9 Systemic lupus erythematosus, unspecified; Z79.899 Other long term (current) drug therapy
CPT/HCPCS: 81025; 43248; J2003; J2704

== ENCOUNTER → 2024-07-17 | Outpatient (CLI) | payer BC ==
--- NOTE | 2024-07-17 10:29 | MM ---
Reason for Exam: Follow-up at short interval from prior study. Last screening mammogram was performed 6 month(s) ago. Patient History: Menarche at age 11. Patient has no children. Premenopausal. Unspecified Hormone for 2 years from age 38 until age 40. Paternal grandmother had breast cancer, age 70. Risk Values: Yesenia 5 year model risk: 0.9%. NCI Lifetime model risk: 10.6%. Prior Study Comparison: 01/10/2023 Bilateral MG 3D screening mammo w/cad, [facility]. 01/14/2024 Bilateral MG 3D screening mammo w/cad, [facility]. 01/16/2024 Right MG 3D work up w/cad RT, [facility]. Tissue Density: Right: There are scattered areas of fibroglandular density. Findings: Analyzed By CAD. The previous nodular asymmetry anterior lateral CC view has not persisted. Findings compatible with benign superimposition shadow. No significant change from prior exams. Overall Assessment: Benign, BI-RAD 2 Management: Screening Mammogram of both breasts in 6 months. Back on schedule. Results were given to the patient verbally at the time of exam. Patient should continue monthly self-breast exams. A clinical breast exam by your physician is recommended on an annual basis. This exam should not preclude additional follow-up of suspicious palpable abnormalities. Note on Yesenia scores and lifetime risk: 1. A Yesenia score greater than 3% is considered moderate risk. If this is the case, consider specialist referral to assess eligibility for a risk reducing agent. 2. If overall lifetime risk for the development of breast cancer is 20% or higher, the patient may qualify for future screening with alternating mammogram and breast MRI. [facility], , 07/17/2024 10:26 AM. Electronically signed and approved by: Denzel Dumont M.D. Radiologist
== END | disposition home or self-care (01) ==
LOC: RADMAMWWP 06:58
PROVIDERS: ATTEND Obstetrics & Gynecology
DX: R92.8 Other abnormal and inconclusive findings on diagnostic imaging of breast (principal); R92.323 Mammographic fibroglandular density, bilateral breasts; Z80.3 Family history of malignant neoplasm of breast
CPT/HCPCS: 77061; 77065

== ENCOUNTER → 2024-10-09 | Outpatient (CLI) | payer BC ==
--- NOTE | 2024-10-09 10:23 | FL ---
EXAMINATION TYPE: FL barium swallow DATE OF EXAM: 10/09/2024 COMPARISON: NONE CLINICAL INDICATION: Female, 44 years old with history of R13.19 OTHER DYSPHAGIA, feel stricture righ t side of throat. History of ENT dilatation. TECHNIQUE: A double contrast esophagram is performed utilizing air and barium. A total of 21 second s of fluoroscopic time was utilized during procedure and 44 images obtained. Total DAP = 266.57. FINDINGS: The esophagus shows normal motility and emptying into the stomach. A small sliding-type hia wong hernia is seen. No intraluminal mass or focal significant stricture noted. No significant gastroe sophageal reflux was seen during real time performance of this study. IMPRESSION: Small sliding-type hiatal hernia otherwise unremarkable study. [facility], , 10/09/2024 10:21 AM
== END | disposition home or self-care (01) ==
LOC: RADFLMAIN 08:39
PROVIDERS: ATTEND Otolaryngology
DX: R13.19 Other dysphagia (principal); K44.9 Diaphragmatic hernia without obstruction or gangrene
CPT/HCPCS: 74220

== ENCOUNTER → 2025-01-08 | Outpatient (CLI) | payer BC ==
--- NOTE | 2025-01-08 18:49 | MM ---
Reason for Exam: Screening (asymptomatic). Last screening mammogram was performed 12 month(s) ago. Patient History: Menarche at age 11. Patient has no children. Premenopausal. Hormonal Contraceptives, starting at age 36. Unspecified Hormone for 2 years from age 38 until age 40. Paternal grandmother had breast cancer, age 70. Last menstrual period: 12/03/2004 Risk Values: Yesenia 5 year model risk: 0.9%. NCI Lifetime model risk: 10.5%. Prior Study Comparison: 01/14/2024 Bilateral MG 3D screening mammo w/cad, [facility]. 01/16/2024 Right MG 3D work up w/cad RT, [facility]. 07/17/2024 Right MG 3D diag mammo w/cad RT, [facility]. Tissue Density: There are scattered areas of fibroglandular density. Findings: Analyzed By CAD. Unchanged focal asymmetry upper outer quadrant right breast middle depth. There is no suspicious group of microcalcifications or new suspicious mass in either breast. Overall Assessment: Benign, BI-RAD 2 Management: Screening Mammogram of both breasts in 1 year. Patient should continue monthly self-breast exams. A clinical breast exam by your physician is recommended on an annual basis. This exam should not preclude additional follow-up of suspicious palpable abnormalities. Note on Yesenia scores and lifetime risk: 1. A Yesenia score greater than 3% is considered moderate risk. If this is the case, consider specialist referral to assess eligibility for a risk reducing agent. 2. If overall lifetime risk for the development of breast cancer is 20% or higher, the patient may qualify for future screening with alternating mammogram and breast MRI. [facility], , 01/08/2025 6:46 PM. Electronically signed and approved by: Denzel Dumont M.D. Radiologist
== END | disposition home or self-care (01) ==
LOC: RADMAMWWP 15:57
PROVIDERS: ATTEND Obstetrics & Gynecology
DX: Z12.31 Encounter for screening mammogram for malignant neoplasm of breast (principal); R92.323 Mammographic fibroglandular density, bilateral breasts; Z92.0 Personal history of contraception; Z80.3 Family history of malignant neoplasm of breast
CPT/HCPCS: 77063; 77067